=== PATIENT | female | born 1960 | race Caucasian/White ===

== ENCOUNTER 2018-01-26 14:34 | Emergency (ER) | payer BC, OTHER ==
[2018-01-26 14:56] VITALS: BP 134/98
--- NOTE | 2018-01-26 15:15 | UC ---
Respiratory Complaint HPI - HPI Summary HPI Summary: Patient c/odry cough for the past 3 weeks preceded by URI, Denies fever, sore throat, malaise. Cough occurs mainly when speaking, no nighttime cough. Received flu vaccine in September. States she has taken OCD's to no avail - History of Current Complaint Stated Complaint: COUGH Hx Obtained From: Patient ?: No Onset/Duration: Gradual Onset, Lasting Weeks Timing: Intermittent Episodes Severity Initially: Mild Severity Currently: Mild Pain Intensity: 0 Character: Cough: Nonproductive Alleviating Factors: Nothing Associated Signs And Symptoms: Positive: Nasal Congestion - Risk Factors Pulmonary Embolism Risk Factors: Negative Cardiac Risk Factors: Negative Pseudomonas Risk Factors: Negative Tuberculosis Risk Factors: Negative - Allergies/Home Medications Allergies/Adverse Reactions: Allergies Allergy/AdvReac Type Severity Reaction Status Date / Time No Known Allergies Allergy Verified 01/26/18 14:46 Home Medications: Home Medications Aspirin EC Low Dose* [Ecotrin EC Low Dose 81 MG*] 81 mg PO BEDTIME 01/26/18 [ History Confirmed 01/26/18] Simvastatin [Zocor] 20 mg PO DAILY 01/26/18 [History Confirmed 01/26/18] PMH/Surg Hx/FS Hx/Imm Hx Previously Healthy: Yes Endocrine History: Dyslipidemia - Surgical History Surgical History: Yes Surgery Procedure, Year, and Place: cholecystectomy - Social History Alcohol Use: None Substance Use Type: None Smoking Status (MU): Never Smoked Tobacco Review of Systems Constitutional: Negative Respiratory: Cough All Other Systems Reviewed And Are Negative: Yes Physical Exam Triage Information Reviewed: Yes Appearance: Well-Appearing Vital Signs: Initial Vital Signs Temp 99.1 F 01/26/18 14:48 Pulse 80 01/26/18 14:48 Resp 18 01/26/18 14:48 BP 134/98 01/26/18 14:48 Pulse Ox 100 01/26/18 14:48 Vital Signs Reviewed: Yes Eye Exam: Normal Eyes: Positive: Conjunctiva Clear ENT Exam: Normal Dental Exam: Normal Neck exam: Normal Respiratory Exam: Normal Cardiovascular Exam: Normal Bowel Sounds: Positive: Present UC Diagnostic Evaluation - Laboratory O2 Sat by Pulse Oximetry: 100 Respiratory Course/Dx - Course Course Of Treatment: start flovent and rinse after each use for 5-10 days. Observe if fever or other constitutional symptoms develop - Differential Dx/Diagnosis Provider Diagnoses: Subacute Bronchitis Discharge - Discharge Plan Condition: Stable Disposition: HOME Patient Education Materials: Acute Bronchitis (ED) Referrals: Guerda Real MD [Primary Care Provider] -
== END 2018-01-26 15:27 | disposition home or self-care (01) ==
LOC: UCEAST 14:34
DX: J20.9 Acute bronchitis, unspecified (principal); E78.5 Hyperlipidemia, unspecified; Z79.82 Long term (current) use of aspirin
CPT/HCPCS: 99212; G0463